=== PATIENT | male | born 1985 | race Caucasian/White ===

== ENCOUNTER 2023-02-02 14:38 | Emergency (ER) | payer SELFPAY ==
[~2023-02-02] VITALS: Ht 167.6 cm; Wt 75.0 kg
[2023-02-02 14:57] VITALS: BP 104/70; PULSE 80; RESP 16; TEMP 98.1; O2SAT 98
== END 2023-02-02 16:53 | disposition left against medical advice (07) ==
LOC: ER 14:38
DX: F10.129 Alcohol abuse with intoxication, unspecified (principal); Y90.0 Blood alcohol level of less than 20 mg/100 ml
CPT/HCPCS: 99283

== ENCOUNTER 2025-02-09 20:38 | Emergency (ER) | payer BC, MEDICAID ==
[~2025-02-09] VITALS: Ht 162.6 cm; Wt 78.0 kg
[2025-02-09 20:41] VITALS: BP 122/74; PULSE 78; RESP 20; TEMP 98.3; O2SAT 96
[2025-02-09] MEDS: ACETAMINOPHEN 325MG TABLET PO ONE (21:38)
[2025-02-09] MEDS: BACITRACIN ZINC OINT UDPKT TOP ONE (21:39)
[2025-02-09] MEDS ORDERED: IBUP-1455 MT (23:25)
== END 2025-02-10 00:33 | disposition home or self-care (01) ==
LOC: ER 20:38
DX: S00.211A Abrasion of right eyelid and periocular area, initial encounter (principal); Y09 Assault by unspecified means; Y93.89 Activity, other specified; Y92.89 Other specified places as the place of occurrence of the external cause; Y99.8 Other external cause status
CPT/HCPCS: 70486; 99284